=== PATIENT | female | born 1985 | race Two or more races ===

== ENCOUNTER 2024-05-21 05:50 | Day surgery (SDC) | payer OTHER ==
[~2024-05-21 05:50] MED LIST: CLONAZEPAM1 MG; WELLBUTRIN XL300 MG
[2024-05-21] MEDS ORDERED: NEURONTIN300 MG PO (12:10)
[2024-05-21] MEDS ORDERED: IBU800 MG PO (12:10)
[2024-05-21] MEDS ORDERED: MORPHINE SULFATE 4 MG/ML VIAL IV ONE (14:25)
== END 2024-05-21 16:15 | disposition home or self-care (01) ==
LOC: CIR.AMB 05:50
PROVIDERS: ATTEND Obstetrics & Gynecology Gynecology
DX: Z30.2 Encounter for sterilization (principal); Z91.013 Allergy to seafood